=== PATIENT | female | born 1950 ===

== ENCOUNTER 2022-01-06 06:22 | Day surgery (SDC) | payer OTHER ==
[~2022-01-06] VITALS: Ht 157.5 cm; Wt 59.0 kg
[~2022-01-06 06:22] MED LIST: ADVAIR 100-501 EACH IH; METFORMIN HCL750 MG PO; MILLIPRED5 MG PO; PROAIR HFA8.5 GM IH; SYNTHROID75 MCG PO
[2022-01-06] MEDS ORDERED: ULTRACET PO (11:13)
[2022-01-06] MEDS ORDERED: NEURONTIN600 M1 PO (11:13)
[2022-01-06] MEDS ORDERED: POLY119PG PO (11:14)
== END 2022-01-06 15:20 | disposition home or self-care (01) ==
LOC: CIR.AMB 06:22
PROVIDERS: ATTEND Surgery
DX: K42.0 Umbilical hernia with obstruction, without gangrene (principal); Z20.822 Contact with and (suspected) exposure to COVID-19; J45.909 Unspecified asthma, uncomplicated; E11.9 Type 2 diabetes mellitus without complications; Z79.84 Long term (current) use of oral hypoglycemic drugs

== ENCOUNTER → 2024-11-06 | Emergency (ER) | payer OTHER ==
[~2024-11-06] MED LIST changes: +BUDESONIDE0.5 MG/2 M IH; +CALCIUM 500-VI1 EAC6 PO; +CYMBALTA30 MG PO; +HYDRALAZINE HCL25 MG PO; +INTEGRA PLUS C1 EACH PO; +IPRATROPIU0.2 MG/1 M IH; +LEVOTHYROXINE25 MCG; +LEVOTHYROXINE50 MCG PO; +LOPRESSOR25 MG PO; +MELATONIN5 M2 PO; +METFORMIN HCL1000 M2 PO; +METFORMIN HCL500 M3; +MULTIVITAMIN-M1 EACH PO; +NEURONTIN600 M1 PO; +NEURONTIN800 MG; +POLY119PG PO; +PREDNISONE 5MG PO; +ROSUVASTATIN CAL5 MG; +ULTRACET PO; +XOPENEX CO1.25 MG/0. IH
== END | disposition home or self-care (01) ==
LOC: ER 16:28
DX: I95.89 Other hypotension (principal); R40.0 Somnolence
CPT/HCPCS: 36415; 70450; 82803; 93005; 96365; 99284; J7030

== ENCOUNTER 2024-11-08 07:54 | Inpatient (IN) | payer OTHER ==
[~2024-11-08] VITALS: Ht 160 cm; Wt 80.7 kg
[~2024-11-08 07:54] MED LIST changes: -BUDESONIDE0.5 MG/2 M IH; -CALCIUM 500-VI1 EAC6 PO; -CYMBALTA30 MG PO; -HYDRALAZINE HCL25 MG PO; -INTEGRA PLUS C1 EACH PO; -IPRATROPIU0.2 MG/1 M IH; -LEVOTHYROXINE25 MCG; -LEVOTHYROXINE50 MCG PO; -LOPRESSOR25 MG PO; -MELATONIN5 M2 PO; -METFORMIN HCL1000 M2 PO; -METFORMIN HCL500 M3; -MULTIVITAMIN-M1 EACH PO; -NEURONTIN800 MG; -PREDNISONE 5MG PO; -ROSUVASTATIN CAL5 MG; -XOPENEX CO1.25 MG/0. IH
[2024-11-08] MEDS ORDERED: 0.9 % SODIUM CHLORIDE 1,000 ML IV SCH ×3 (08:28→20:00)
[2024-11-08] MEDS ORDERED: METFORMIN HCL500 M3 (08:30)
[2024-11-08] MEDS ORDERED: LEVOTHYROXINE25 MCG (08:30)
[2024-11-08] MEDS ORDERED: NEURONTIN800 MG (08:30)
[2024-11-08] MEDS ORDERED: ROSUVASTATIN CAL5 MG (08:31)
--- NOTE | 2024-11-08 08:32 | NUR ---
SE RECIBE PTE DE AMBULANCIA ACMOPANADA DE FAMILIAR QUIEN REFIERE DEBILIDAD E HIPOTENSION, SE ROXANN SV Y SE UBICA EN OBSERVACION MAIRA 09 CON BARRANDAS ELEVADAS. SE LE REALIZA EKG, MAS PTE VIENE CANALIZADA DESDE AMBULANCION CON ANGIO 22, PTE SE OBSERVA SONOLIENTA.
--- NOTE | 2024-11-08 08:40 | NUR ---
PTE EVALUADA POR EL QUIEN ORDENA TRATAMIENTO LA CUAL SE EJCUTA POR MS.AYALA FORD . SE MANTIENE BAJO OSERVACION.
[2024-11-08 09:22] LABS: HEMATOCRIT 38.5 % (36.0-45.00); HEMOGLOBIN 12.7 g/dL (12.0-15.00); MEAN CELL VOLUME 93.4 fL (80.00-100.00); MEAN CORPUSCULAR HEMOGLOBIN 30.9 pg (27.00-32.0); MEAN CORPUSCULAR HGB CONC 33.1 g/dl (32.0-36.0); PLATELET COUNT 142 K/uL (150-450); RED BLOOD COUNT 4.12 M/uL (4.00-6.00); RED CELL DISTRIBUTION WIDTH 14.3 % (11.5-14.5)
[2024-11-08] MEDS ORDERED: CEFTRIAXONE SODIUM 1,000 MG VIAL IV ONE ×2 (09:30→12:30)
[2024-11-08] MEDS ORDERED: CEFTRIAXONE SODIUM 2,000 MG VIAL ONE (10:00)
[2024-11-08 10:09] LABS: ALBUMIN 2.9 gm/dL (3.4-5.0); BILIRUBIN TOTAL 0.84 mg/dL (0.3-1.2); CALCIUM 9.1 mg/dL (8.5-10.1); CREATININE SERUM 1.12 mg/dL (0.55-1.02); GFR 47.55; GLOBULINA 4.4 G/DL (2.4-3.5); POTASSIUM 4.35 mEq/L (3.5-5.1); TOTAL PROTEIN 7.3 gm/dL (6.4-8.2); TSH 2.66 uIU/mL (0.358-3.74)
--- NOTE | 2024-11-08 10:35 | NUR ---
SE ORIENTA A PACIENTE Y FAMILIAR SOBRE TX Y LOS MISMOS REFIEREN ENTENDER Y ACEPTAR. SE LE EXTRAEN MUESTRAS DE [place]ORE[place] Y SE CANALIZA BAJO MEDIDAS ASEPTICAS. SE ORIENTA A FAMILIAR SOBRE EL RIESGO AMBULATORIO QUE PRESENTA A LA PACIENTE. SE LE EXPLICA QUE LA PACIENTE NO DEBE LEVANTARSE DE LA CAMA POR RIESGO A CAIDA. SE LE OFRECE RANULFO TRUDI PARA ORINAR EN CAMA. EL FAMILIAR OPTA POR LLEVAR A LA PACIENTE AL LASHONDA AUN SIENDO ORIENTADA.
[2024-11-08 11:37] LABS: PH,URINE 6.5 (5.0-8.0); URINE APPEARANCE Cloudy; URINE BILIRRUBIN Negative (NEGATIVE); URINE BLOOD Moderate; URINE COLOR Yellow; URINE GLUCOSE Negative (NEGATIVE); URINE KETONE Trace (NEGATIVE); URINE LEUKOCYTE Large; URINE NITRATE Positive; URINE UROBILINOGEN 0.2 E.U./dl
[2024-11-08 11:38] LABS: COVID-19 AG NEGATIVE (NEGATIVE); INFLUENZA A AG NEGATIVE (NEGATIVE)
[2024-11-08 11:42] LABS: URINE RBC 10.1 uL (0.0-20.8)
[2024-11-08 11:52] LABS: URINE BACTERIA > 9821.5 uL (0.0-1933); URINE CAST 0.73 uL (0.0-1.40); URINE PROTEIN 100 (NEGATIVE)
[2024-11-08 11:56] LABS: COCAINE NEGATIVE (NEGATIVE); METHADONE NEGATIVE (NEGATIVE); OPIATES NEGATIVE (NEGATIVE); THC ( Cannabinoids) NEGATIVE (NEGATIVE)
[2024-11-08 12:06] LABS: ABG PH 7.428 (7.35-7.45); ABG pCO2 28.1 mmHg (35-45); BASE EXCESS -4.6 mmol/l; BICARBONATE 18.1 mmol/l (23-25); SaO2 93.3 %
[2024-11-08 13:07] LABS: allen test SATISFACTORY; mode ROOM AIR; o2 21 %; puncture site RADIAL LEFT
[2024-11-08] MEDS ORDERED: IPRATROPIUM BROMIDE 0.5 MG/2.5 ML AMPUL.NEB IH SCH ×2 (18:00→21:00)
[2024-11-08] MEDS ORDERED: LEVALBUTEROL HCL 1.25 MG/3 ML SOLUTION IH SCH ×2 (18:00→21:00)
[2024-11-08] MEDS ORDERED: METHYLPREDNISOLONE SOD SUCC 125 MG VIAL IV ONE (18:00)
[2024-11-08] MEDS ORDERED: CEFTRIAXONE SODIUM 2,000 MG in 0.9 % SODIUM CHLORIDE 100 ML IV SCH (18:00)
[2024-11-08] MEDS ORDERED: 0.9 % SODIUM CHLORIDE 1,000 ML IV ONE (18:00)
[2024-11-08] MEDS ORDERED: LEVALBUTEROL HCL 1.25 MG/3 ML SOLUTION IH ONE (18:33)
[2024-11-08] MEDS ORDERED: IPRATROPIUM BROMIDE 0.5 MG/2.5 ML AMPUL.NEB IH ONE (18:33)
[2024-11-08 18:47] LABS: ABG PH 7.356 (7.35-7.45); ABG PO2 168.8 mmHg (80-100); ABG pCO2 30.1 mmHg (35-45); BASE EXCESS -7.6 mmol/l; BICARBONATE 16.5 mmol/l (23-25); SaO2 99.4 %
[2024-11-08 18:48] LABS: Tco2 17.4 mmol/l; allen test SATISFACTORY; mode NASAL CANNULA; puncture site RADIAL RIGHT
[2024-11-08 18:49] LABS: o2 40 %
[2024-11-08] MEDS ORDERED: DILTIAZEM HCL 25 MG/5 ML VIAL IV ONE (18:52)
[2024-11-08] MEDS ORDERED: DILTIAZEM HCL 50 MG/10 ML VIAL IV ONE (19:15)
[2024-11-08] MEDS ORDERED: PIPERACILLIN/TAZOBACTAM SODIUM 3.375 GM in DEXTROSE 5 % IN WATER 100 ML IV SCH (20:09)
[2024-11-08] MEDS ORDERED: FAMOTIDINE/PF 20 MG in 0.9 % SODIUM CHLORIDE 8 ML IV PUSH SCH (20:10)
[2024-11-08] MEDS ORDERED: ACETAMINOPHEN 500 MG GEL..CAP PO PRN (20:15)
[2024-11-08] MEDS ORDERED: INSULIN LISPRO 1,000 UNIT/10 ML UNITS SUBCUTANEO PRN (20:15)
[2024-11-08] MEDS ORDERED: DEXTROSE 50 % IN WATER 0.5 G/ML DISP.SYRIN IV PRN (20:15)
[2024-11-08] MEDS ORDERED: HYDROCORTISONE SODIUM SUCC/PF 100 MG VIAL IV SCH (21:00)
[2024-11-08 21:23] LABS: INR 1.4; PROTHROMBIN TIME 14.9 SECONDS (9.0-11.5)
[2024-11-08 21:33] LABS: D DIMER 8.83 MG/L; PARTIAL THROMBOPLASTIN TIME 29.7 SECONDS (22.0-34.0)
[2024-11-08 21:38] LABS: C-REACTIVE PROTEIN 28.5 MG/DL (0.00-0.29); MAGNESIUM 1.3 mg/dL (1.8-2.4)
[2024-11-08] MEDS ORDERED: FAMOTIDINE/PF 20 MG/2 ML VIAL ONE (21:56)
[2024-11-08] MEDS ORDERED: HYDROCORTISONE SODIUM SUCC/PF 100 MG VIAL ONE (21:56)
[2024-11-08] MEDS ORDERED: PIPERACILLIN/TAZOBACTAM SODIUM 3.375 GM VIAL IV ONE (21:56)
[2024-11-08 22:22] VITALS: BP 124/78; O2SAT 99
[2024-11-08 23:30] VITALS: BP 114/72; O2SAT 99
[2024-11-08 23:52] LABS: COCAINE NEGATIVE (NEGATIVE); METHADONE NEGATIVE (NEGATIVE); OPIATES NEGATIVE (NEGATIVE); THC ( Cannabinoids) NEGATIVE (NEGATIVE)
[2024-11-09] VITALS (15 sets, daily range): BP systolic 12–155; BP diastolic 68–88; O2SAT 96–100
[2024-11-09] MEDS ORDERED: METHYLPREDNISOLONE SOD SUCC 40 MG VIAL IV SCH
[2024-11-09] MEDS ORDERED: MAGNESIUM SULFATE IN WATER 50 ML IV ONE (01:45)
[2024-11-09] MEDS ORDERED: LEVOTHYROXINE SODIUM 75 MCG TABLET PO SCH (06:00)
[2024-11-09] MEDS ORDERED: DEXTROSE 50 % IN WATER 0.5 G/ML VIAL IV PRN (07:15)
[2024-11-09 07:31] LABS: MAGNESIUM 2.2 mg/dL (1.8-2.4); PHOSPHOROUS 2.7 mg/dL (2.5-4.9)
[2024-11-09 07:49] LABS: TSH 0.728 uIU/mL (0.358-3.74)
[2024-11-09] MEDS ORDERED: HYDROCORTISONE SODIUM SUCC/PF 50 MG/ML ML IV SCH (13:00)
[2024-11-09] MEDS ORDERED: ENOXAPARIN SODIUM 40 MG/0.4 ML SYRINGE SUBCUTANEO SCH (17:00)
[2024-11-09] MEDS ORDERED: AMIODARONE HCL 900 MG in DEXTROSE 5 % IN WATER 500 ML IV SCH (18:30)
[2024-11-10] VITALS (17 sets, daily range): BP systolic 92–176; BP diastolic 62–96; O2SAT 97–100
[2024-11-10] MEDS ORDERED: hydrALAZINE HCL 25 MG TABLET PO SCH (05:04)
[2024-11-10] MEDS ORDERED: hydrALAZINE HCL 25 MG TABLET PO ONE (05:22)
[2024-11-10 07:24] LABS: HEMOGLOBIN 11.5 g/dL (12.0-15.00); MEAN CELL VOLUME 90.7 fL (80.00-100.00); MEAN CORPUSCULAR HEMOGLOBIN 30.6 pg (27.00-32.0); MEAN CORPUSCULAR HGB CONC 33.8 g/dl (32.0-36.0); RED BLOOD COUNT 3.75 M/uL (4.00-6.00); RED CELL DISTRIBUTION WIDTH 14.9 % (11.5-14.5)
[2024-11-10 07:33] LABS: PLATELET COUNT 123 K/uL (150-450)
[2024-11-10 07:51] LABS: URINE APPEARANCE Clear; URINE BILIRRUBIN Negative (NEGATIVE); URINE BLOOD Small; URINE COLOR Yellow; URINE KETONE Negative (NEGATIVE); URINE LEUKOCYTE Negative; URINE NITRATE Negative; URINE PROTEIN 30 (NEGATIVE); URINE UROBILINOGEN 0.2 E.U./dl
[2024-11-10 07:53] LABS: URINE BACTERIA 30.5 uL (0.0-1933); URINE EPITHELIAL CELLS 5.5 uL (0.0-38.8); URINE RBC 62.8 uL (0.0-20.8); URINE WBC 21.2 uL (0.0-23.2)
[2024-11-10 07:57] LABS: ALBUMIN 2.5 gm/dL (3.4-5.0); BILIRUBIN TOTAL 0.39 mg/dL (0.3-1.2); CALCIUM 7.7 mg/dL (8.5-10.1); CREATININE SERUM 0.81 mg/dL (0.55-1.02); GFR 69.12; GLOBULINA 3.4 G/DL (2.4-3.5); MAGNESIUM 1.9 mg/dL (1.8-2.4); PHOSPHOROUS 2.1 mg/dL (2.5-4.9); POTASSIUM 3.13 mEq/L (3.5-5.1); TOTAL PROTEIN 5.9 gm/dL (6.4-8.2)
[2024-11-10 08:30] LABS: URINE CAST 0.73 uL (0.0-1.40); URINE GLUCOSE >=1000 MG/DL (NEGATIVE)
[2024-11-10] MEDS ORDERED: POTASSIUM CHLORIDE IN WATER 100 ML IV NR (12:00)
[2024-11-10] MEDS ORDERED: POTASSIUM PHOS,M-BASIC-D-BASIC 9 MM in 0.9 % SODIUM CHLORIDE 250 ML IV NR (12:00)
[2024-11-10] MEDS ORDERED: HYDROCORTISONE SODIUM SUCC/PF 50 MG/ML ML IV SCH (17:00)
[2024-11-10] MEDS ORDERED: AMIODARONE HCL 200 MG TABLET PO SCH (17:00)
[2024-11-10] MEDS ORDERED: METOPROLOL TARTRATE 25 MG TABLET PO SCH (17:00)
[2024-11-11] VITALS (7 sets, daily range): BP systolic 117–171; BP diastolic 60–108; O2SAT 95–100
[2024-11-11] MEDS ORDERED: BUDESONIDE 0.5 MG/2 ML AMPUL.NEB IH SCH (12:45)
[2024-11-11 14:46] LABS: CALCIUM 7.9 mg/dL (8.5-10.1); CREATININE SERUM 0.59 mg/dL (0.55-1.02); GFR 99.64; MAGNESIUM 1.7 mg/dL (1.8-2.4)
[2024-11-11 14:49] LABS: PHOSPHOROUS 1.5 mg/dL (2.5-4.9)
[2024-11-11 14:50] LABS: POTASSIUM 2.68 mEq/L (3.5-5.1)
[2024-11-11] MEDS ORDERED: MAGNESIUM SULFATE IN WATER 50 ML IV NR (16:00)
[2024-11-11 16:55] LABS: ABG PH 7.526 (7.35-7.45); ABG PO2 76.9 mmHg (80-100); ABG pCO2 29.8 mmHg (35-45); BASE EXCESS 2.4 mmol/l; BICARBONATE 24.1 mmol/l (23-25); SaO2 96.8 %
[2024-11-11] MEDS ORDERED: POTASSIUM CHLORIDE IN WATER 40 MEQ/100 ML PIGGYBAG IV SCH (20:00)
[2024-11-11 20:20] LABS: allen test SATISFACTORY; mode ROOM AIR; o2 21 %; puncture site RADIAL RIGHT
[2024-11-11] MEDS ORDERED: CLONAZEPAM 0.5 MG TABLET PO SCH (21:00)
[2024-11-11] MEDS ORDERED: CLONAZEPAM 1 MG TABLET PO SCH (21:00)
[2024-11-11] MEDS ORDERED: POTASSIUM PHOS,M-BASIC-D-BASIC 3 MM/ML VIAL IV SCH (21:00)
[2024-11-12 04:00] VITALS: BP 133/85; O2SAT 100
[2024-11-12 07:13] VITALS: BP 128/68; O2SAT 98
[2024-11-12] MEDS ORDERED: GABAPENTIN 300 MG CAPSULE PO SCH (09:00)
[2024-11-12] MEDS ORDERED: Duloxetine HCl 30 MG CAPSULE.DR PO SCH (09:00)
[2024-11-12 12:24] VITALS: BP 143/71; O2SAT 100
[2024-11-12 12:56] LABS: HEMATOCRIT 33.4 % (36.0-45.00); HEMOGLOBIN 11.2 g/dL (12.0-15.00); MEAN CELL VOLUME 89.3 fL (80.00-100.00); MEAN CORPUSCULAR HEMOGLOBIN 29.9 pg (27.00-32.0); MEAN CORPUSCULAR HGB CONC 33.4 g/dl (32.0-36.0); PLATELET COUNT 165 K/uL (150-450); RED BLOOD COUNT 3.74 M/uL (4.00-6.00); RED CELL DISTRIBUTION WIDTH 15.1 % (11.5-14.5)
[2024-11-12 13:24] LABS: ALBUMIN 2.2 gm/dL (3.4-5.0); BILIRUBIN TOTAL 0.55 mg/dL (0.3-1.2); CALCIUM 7.6 mg/dL (8.5-10.1); CREATININE SERUM 0.51 mg/dL (0.55-1.02); GFR 117.88; GLOBULINA 3.3 G/DL (2.4-3.5); MAGNESIUM 1.9 mg/dL (1.8-2.4); PHOSPHOROUS 2.5 mg/dL (2.5-4.9); TOTAL PROTEIN 5.5 gm/dL (6.4-8.2)
[2024-11-12 13:36] LABS: POTASSIUM 2.84 mEq/L (3.5-5.1)
[2024-11-12] MEDS ORDERED: POTASSIUM PHOS,M-BASIC-D-BASIC 3 MM/ML VIAL IV NR (13:45)
[2024-11-12 15:13] VITALS: BP 119/60; O2SAT 99
[2024-11-12] MEDS ORDERED: PREDNISONE 5 MG TABLET PO SCH (17:00)
[2024-11-12] MEDS ORDERED: CALCIUM CARBONATE/VITAMIN D3 1 TAB TABLET PO SCH (17:00)
[2024-11-12] MEDS ORDERED: POTASSIUM CHLORIDE-0.45% NACL 20 MEQ/1,000 ML PIGGYBAG IV SCH (17:45)
[2024-11-12] MEDS ORDERED: POTASSIUM BICARBONATE/CIT AC 25 MEQ TABLET.EFF PO NR (18:45)
[2024-11-12] MEDS ORDERED: RINGERS SOLUTION,LACTATED 1,000 ML IV SCH (18:45)
[2024-11-12] MEDS ORDERED: POTASSIUM CHLORIDE-0.45% NACL 1,000 ML IV SCH (19:00)
[2024-11-12] MEDS ORDERED: FAMOtidine 20 MG TABLET PO SCH (21:00)
[2024-11-13] VITALS (8 sets, daily range): BP systolic 128–146; BP diastolic 64–69; O2SAT 94–99
[2024-11-13 06:21] LABS: HEMATOCRIT 34.4 % (36.0-45.00); HEMOGLOBIN 11.7 g/dL (12.0-15.00); MEAN CELL VOLUME 90.7 fL (80.00-100.00); MEAN CORPUSCULAR HEMOGLOBIN 30.7 pg (27.00-32.0); MEAN CORPUSCULAR HGB CONC 33.9 g/dl (32.0-36.0); PLATELET COUNT 225 K/uL (150-450); RED CELL DISTRIBUTION WIDTH 14.9 % (11.5-14.5)
[2024-11-13 06:49] LABS: ALBUMIN 2.3 gm/dL (3.4-5.0); BILIRUBIN TOTAL 0.72 mg/dL (0.3-1.2); CALCIUM 7.6 mg/dL (8.5-10.1); CREATININE SERUM 0.41 mg/dL (0.55-1.02); GFR 151.65; GLOBULINA 3.1 G/DL (2.4-3.5); MAGNESIUM 1.7 mg/dL (1.8-2.4); PHOSPHOROUS 2.1 mg/dL (2.5-4.9); POTASSIUM 3.26 mEq/L (3.5-5.1); TOTAL PROTEIN 5.4 gm/dL (6.4-8.2)
[2024-11-13] MEDS ORDERED: CALCIUM CARBONATE/VITAMIN D3 1 TAB TABLET PO SCH ×2 (09:00→13:00)
[2024-11-13] MEDS ORDERED: MAGNESIUM SULFATE IN WATER 50 ML IV STA (10:45)
[2024-11-13] MEDS ORDERED: POTASSIUM BICARBONATE/CIT AC 25 MEQ TABLET.EFF PO SCH (11:00)
[2024-11-13] MEDS ORDERED: MULTIVIT-MIN/IRON FUM/FOLIC AC 1 TAB TABLET PO NR (12:00)
[2024-11-13] MEDS ORDERED: IRON FUM,PS/FOLIC/BCOMP,C NO.9 1 CAP CAPSULE PO NR (12:00)
[2024-11-13] MEDS ORDERED: POTASSIUM PHOS,M-BASIC-D-BASIC 18 MM in 0.9 % SODIUM CHLORIDE 500 ML IV ONE (14:00)
[2024-11-13] MEDS ORDERED: MELATONIN 5 MG TABLET PO SCH (21:00)
[2024-11-13] MEDS ORDERED: Duloxetine HCl 30 MG CAPSULE.DR PO SCH (21:00)
[2024-11-13] MEDS ORDERED: DOCUSATE SODIUM 100MG CAP PO SCH (21:00)
[2024-11-14] VITALS (8 sets, daily range): BP systolic 115–145; BP diastolic 60–71; O2SAT 94–99
[2024-11-14] MEDS ORDERED: LEVOTHYROXINE SODIUM 50 MCG TABLET PO SCH (06:00)
[2024-11-14] MEDS ORDERED: IRON FUM,PS/FOLIC/BCOMP,C NO.9 1 CAP CAPSULE PO SCH (09:00)
[2024-11-14] MEDS ORDERED: MULTIVIT-MIN/IRON FUM/FOLIC AC 1 TAB TABLET PO SCH (09:00)
[2024-11-14 09:03] LABS: HEMATOCRIT 35.8 % (36.0-45.00); HEMOGLOBIN 11.9 g/dL (12.0-15.00); MEAN CELL VOLUME 91.2 fL (80.00-100.00); MEAN CORPUSCULAR HEMOGLOBIN 30.2 pg (27.00-32.0); MEAN CORPUSCULAR HGB CONC 33.2 g/dl (32.0-36.0); PLATELET COUNT 306 K/uL (150-450); RED BLOOD COUNT 3.93 M/uL (4.00-6.00); RED CELL DISTRIBUTION WIDTH 14.9 % (11.5-14.5)
[2024-11-14 09:53] LABS: ALBUMIN 2.4 gm/dL (3.4-5.0); BILIRUBIN TOTAL 0.7 mg/dL (0.3-1.2); CALCIUM 8.5 mg/dL (8.5-10.1); CREATININE SERUM 0.46 mg/dL (0.55-1.02); GFR 132.79; GLOBULINA 3.4 G/DL (2.4-3.5); MAGNESIUM 1.8 mg/dL (1.8-2.4); POTASSIUM 4.38 mEq/L (3.5-5.1); TOTAL PROTEIN 5.8 gm/dL (6.4-8.2)
[2024-11-15 02:00] VITALS: O2SAT 90
[2024-11-15 02:44] VITALS: BP 122/64; O2SAT 91
[2024-11-15 07:50] VITALS: BP 101/57; O2SAT 94
[2024-11-15 09:26] VITALS: O2SAT 90
[2024-11-15 12:27] VITALS: O2SAT 96
[2024-11-15] MEDS ORDERED: METFORMIN HCL1000 M2 PO (16:20)
[2024-11-15] MEDS ORDERED: LOPRESSOR25 MG PO (16:22)
[2024-11-15] MEDS ORDERED: INTEGRA PLUS C1 EACH PO (16:22)
[2024-11-15] MEDS ORDERED: HYDRALAZINE HCL25 MG PO (16:22)
[2024-11-15] MEDS ORDERED: CYMBALTA30 MG PO (16:22)
[2024-11-15] MEDS ORDERED: CALCIUM 500-VI1 EAC6 PO (16:23)
[2024-11-15] MEDS ORDERED: BUDESONIDE0.5 MG/2 M IH (16:23)
[2024-11-15] MEDS ORDERED: PREDNISONE 5MG PO (16:24)
[2024-11-15] MEDS ORDERED: MULTIVITAMIN-M1 EACH PO (16:24)
[2024-11-15] MEDS ORDERED: LEVOTHYROXINE50 MCG PO (16:24)
[2024-11-15] MEDS ORDERED: MELATONIN5 M2 PO (16:24)
[2024-11-15] MEDS ORDERED: XOPENEX CO1.25 MG/0. IH (16:25)
[2024-11-15] MEDS ORDERED: IPRATROPIU0.2 MG/1 M IH (16:25)
== END 2024-11-15 16:52 | disposition home or self-care (01) | DRG 871 ==
LOC: ER 07:54 → ICU 20:18 → ICU-2 20:18 → MEDJ 20:18 → ICU 11-09 02:58 → MEDJ 11-12 19:39 → ICU 11-12 19:48 → MEDJ 11-12 20:39
PROVIDERS: Emergency Medicine; General Practice; Internal Medicine; Internal Medicine Infectious Disease; ADMIT Internal Medicine; ATTEND Internal Medicine
PROC: BB24ZZZ Computerized Tomography (CT Scan) of Bilateral Lungs (ICD-10-PCS; principal; 2024-11-08)
PROC: B020ZZZ Computerized Tomography (CT Scan) of Brain (ICD-10-PCS; 2024-11-08)
PROC: B246ZZZ Ultrasonography of Right and Left Heart (ICD-10-PCS; 2024-11-08)
PROC: 3E0F7GC Introduction of Other Therapeutic Substance into Respiratory Tract, Via Natural or Artificial Opening (ICD-10-PCS; 2024-11-09)
PROC: 4A12X4Z Monitoring of Cardiac Electrical Activity, External Approach (ICD-10-PCS; 2024-11-13)
DX: A41.9 Sepsis, unspecified organism (principal); R65.21 Severe sepsis with septic shock; N39.0 Urinary tract infection, site not specified; E27.2 Addisonian crisis; J44.1 Chronic obstructive pulmonary disease with (acute) exacerbation; N17.9 Acute kidney failure, unspecified; E11.65 Type 2 diabetes mellitus with hyperglycemia; I48.0 Paroxysmal atrial fibrillation; J84.10 Pulmonary fibrosis, unspecified; D86.0 Sarcoidosis of lung; R91.8 Other nonspecific abnormal finding of lung field; E87.6 Hypokalemia; K59.00 Constipation, unspecified; I12.9 Hypertensive chronic kidney disease with stage 1 through stage 4 chronic kidney disease, or unspecified chronic kidney disease; E11.42 Type 2 diabetes mellitus with diabetic polyneuropathy; N18.9 Chronic kidney disease, unspecified; J45.909 Unspecified asthma, uncomplicated; E78.5 Hyperlipidemia, unspecified; E03.9 Hypothyroidism, unspecified; Z79.84 Long term (current) use of oral hypoglycemic drugs; Z79.52 Long term (current) use of systemic steroids